=== PATIENT | male | born 1935 | race Caucasian/White ===

== ENCOUNTER 2017-11-27 10:41 | Inpatient (IN) | payer MEDICARE ==
[~2017-11-27] VITALS: Ht 177.8 cm; Wt 71.0 kg
[2017-11-27] MEDS ORDERED: iohexol 300mg/ml 100ml inj. ONE (10:53)
[2017-11-27 11:09] LABS: BASOPHILS # (AUTO) 0.1 X10'3 (0-0.2); BASOPHILS % (AUTO) 0.8 % (0-1); EOSINOPHILS # (AUTO) 0.1 X10'3 (0-0.9); EOSINOPHILS % (AUTO) 1.8 % (0-6); HEMATOCRIT 43.8 % (42.0-52.0); HEMOGLOBIN 14.6 g/dl (14.0-17.9); LYMPHOCYTES # (AUTO) 0.8 X10'3 (1.1-4.8); MEAN CORPUSCULAR HEMOGLOBIN 29.9 PG (27.0-31.0); MEAN CORPUSCULAR HGB CONC 33.4 % (33.0-36.5); MEAN CORPUSCULAR VOLUME 89.5 FL (78-98); MEAN PLATELET VOLUME 7.6 FL (7.4-10.4); MONOCYTES # (AUTO) 0.4 X10'3 (0-0.9); MONOCYTES % (AUTO) 6.2 % (2-12); NEUTROPHILS # (AUTO) 5.2 X10'3 (1.8-7.7); NEUTROPHILS % (AUTO) 79.2 % (42-75); PLATELET COUNT 250 X10'3 (140-440); RED BLOOD COUNT 4.89 X10'6 (4.70-6.10); RED CELL DISTRIBUTION WIDTH 13.8 % (11.5-14.5); WHITE BLOOD COUNT 6.5 X10'3 (4.5-11.0)
[2017-11-27] MEDS ORDERED: aspirin 325mg tablet PO ONE (11:15)
[2017-11-27 11:20] LABS: PARTIAL THROMBOPLASTIN TIME 27 SECONDS (22-32)
[2017-11-27 11:32] LABS: ALANINE AMINOTRANSFERASE 15 U/L (12-78); ALBUMIN 3.2 G/DL (3.4-5.0); ALBUMIN/GLOBULIN RATIO 0.8 (1.1-1.5); ALKALINE PHOSPHATASE 85 IU/L (46-116); ANION GAP 7 (8-16); ASPARTATE AMINO TRANSFERASE 14 U/L (10-37); BILIRUBIN,TOTAL 0.5 MG/DL (0.1-1.0); BLOOD UREA NITROGEN 16 MG/DL (7-18); BUN/CREATININE RATIO 11.2 (5.4-32.0); CALCIUM 8.5 MG/DL (8.5-10.1); CHLORIDE 102 MMOL/L (99-107); CREATININE 1.43 MG/DL (0.60-1.10); GLUCOSE 136 MG/DL (70-104); POTASSIUM 3.8 MMOL/L (3.5-5.1); SODIUM 139 MMOL/L (135-145); TOTAL CARBON DIOXIDE 29.8 MMOL/L (24-32); TOTAL PROTEIN 7.2 G/DL (6.4-8.2); eGFR 47 ML/MIN
[2017-11-27 11:33] LABS: TROPONIN I < 0.04 NG/ML (0.0-0.05)
[2017-11-27] MEDS ORDERED: HYDROcodone/acetaminophen 5mg/325mg tablet PO PRN (11:50)
[2017-11-27] MEDS ORDERED: magnesium hydroxide 30ml (MOM) UD suspension PO PRN (11:50)
[2017-11-27] MEDS ORDERED: acetaminophen 325mg tablet PO PRN (11:50)
[2017-11-27] MEDS ORDERED: mag hydrox/Alum hydrox/simeth 30ml oral suspension PO PRN (11:50)
[2017-11-27] MEDS ORDERED: ondansetron/PF 4mg/2ml inj IV PRN (11:50)
[2017-11-27] MEDS ORDERED: morphine 2 MG/ML inj. syringe IV PRN (11:50)
[2017-11-27 13:27] LABS: CLARITY,URINE CLEAR (Clear); COLOR,URINE STRAW (Yellow); GLUCOSE, URINE NEGATIVE (Neg); KETONES,URINE NEGATIVE (Neg); LEUKOCYTE ESTERASE ,URINE NEGATIVE (Neg); NITRITES, URINE NEGATIVE (Neg); OCCULT BLOOD,URINE NEGATIVE (Neg); PROTEIN,URINE NEGATIVE (Neg); UROBILINOGEN,URINE 0.2 E.U/dL (0.2-1.0)
[2017-11-27 13:28] LABS: UA COLLECTION TYPE CLN CATCH MIDSTREAM
[2017-11-27 18:00] VITALS: BP 135/65
[2017-11-27] MEDS ORDERED: tamsulosin 0.4mg capsule PO SCH (21:00)
[2017-11-27 22:00] VITALS: BP 109/62
[2017-11-27] MEDS: acetaminophen 325mg tablet PO PRN (22:20)
[2017-11-28 02:00] VITALS: BP 100/57
[2017-11-28 05:59] VITALS: BP 110/63
[2017-11-28 06:36] LABS: BASOPHILS % (AUTO) 0.6 % (0-1); EOSINOPHILS # (AUTO) 0.2 X10'3 (0-0.9); EOSINOPHILS % (AUTO) 2.6 % (0-6); HEMATOCRIT 40.7 % (42.0-52.0); HEMOGLOBIN 13.3 g/dl (14.0-17.9); LYMPHOCYTES # (AUTO) 1.1 X10'3 (1.1-4.8); LYMPHOCYTES % (AUTO) 15.8 % (21-51); MEAN CORPUSCULAR HEMOGLOBIN 29.7 PG (27.0-31.0); MEAN CORPUSCULAR HGB CONC 32.7 % (33.0-36.5); MEAN CORPUSCULAR VOLUME 90.9 FL (78-98); MEAN PLATELET VOLUME 7.4 FL (7.4-10.4); MONOCYTES # (AUTO) 0.6 X10'3 (0-0.9); NEUTROPHILS # (AUTO) 5.2 X10'3 (1.8-7.7); PLATELET COUNT 243 X10'3 (140-440); RED BLOOD COUNT 4.48 X10'6 (4.70-6.10); RED CELL DISTRIBUTION WIDTH 13.2 % (11.5-14.5); WHITE BLOOD COUNT 7.2 X10'3 (4.5-11.0)
[2017-11-28 06:48] LABS: ALANINE AMINOTRANSFERASE 9 U/L (12-78); ALBUMIN 2.6 G/DL (3.4-5.0); ALBUMIN/GLOBULIN RATIO 0.8 (1.1-1.5); ALKALINE PHOSPHATASE 67 IU/L (46-116); ANION GAP 4 (8-16); ASPARTATE AMINO TRANSFERASE 14 U/L (10-37); BILIRUBIN,TOTAL 0.5 MG/DL (0.1-1.0); BLOOD UREA NITROGEN 15 MG/DL (7-18); BUN/CREATININE RATIO 10.2 (5.4-32.0); CALCIUM 8.7 MG/DL (8.5-10.1); CHLORIDE 106 MMOL/L (99-107); CREATININE 1.47 MG/DL (0.60-1.10); GLUCOSE 98 MG/DL (70-104); POTASSIUM 4.4 MMOL/L (3.5-5.1); SODIUM 142 MMOL/L (135-145); TOTAL CARBON DIOXIDE 31.6 MMOL/L (24-32); eGFR 46 ML/MIN
[2017-11-28] MEDS ORDERED: enoxaparin 40mg/0.4ml syringe SUBCUT SCH (08:00)
[2017-11-28] MEDS ORDERED: aspirin 325mg tablet PO SCH (08:30)
[2017-11-28 08:57] VITALS: BP 110/63
[2017-11-28 10:00] VITALS: BP 117/74
[2017-11-28] MEDS: acetaminophen 325mg tablet PO PRN (11:47)
[2017-11-28] MEDS ORDERED: ASPI81TA52 PO (13:56)
[2017-11-28] MEDS ORDERED: ATOR20TA PO (13:56)
[2017-11-28] MEDS ORDERED: CEPH500C5 PO (13:58)
== END 2017-11-28 15:35 | disposition home or self-care (01) | DRG 69 ==
LOC: ER 10:42 → ED HOLD 11:47 → EDBEDREQ 12:59 → ORTHO 4S 13:30
PROVIDERS: ADMIT Internal Medicine; ATTEND Family Medicine
PROC: BW281ZZ Computerized Tomography (CT Scan) of Head using Low Osmolar Contrast (ICD-10-PCS; principal; 2017-11-27)
DX: G45.9 Transient cerebral ischemic attack, unspecified (principal); M50.30 Other cervical disc degeneration, unspecified cervical region; N40.0 Benign prostatic hyperplasia without lower urinary tract symptoms; L98.499 Non-pressure chronic ulcer of skin of other sites with unspecified severity; S01.00XD Unspecified open wound of scalp, subsequent encounter; Z88.2 Allergy status to sulfonamides; Z90.49 Acquired absence of other specified parts of digestive tract; Z85.828 Personal history of other malignant neoplasm of skin; Z85.51 Personal history of malignant neoplasm of bladder; Z87.11 Personal history of peptic ulcer disease; Z82.3 Family history of stroke
CPT/HCPCS: 36415; 70470; 70551; 71045; 72141; 80053; 81003; 83880; 84484; 85025; 85610; 85730; 87070; 93005; 93306; 99285; G0378; J1650; Q9967

== ENCOUNTER 2017-12-01 13:58 | Inpatient (IN) | payer MEDICARE ==
[~2017-12-01] VITALS: Ht 185.4 cm; Wt 72.0 kg
[~2017-12-01 13:58] MED LIST: ASPI81TA52 PO; ATOR20TA PO; CEPH500C5 PO
[2017-12-01 14:36] LABS: BASOPHILS % (AUTO) 0.4 % (0-1); EOSINOPHILS # (AUTO) 0.2 X10'3 (0-0.9); EOSINOPHILS % (AUTO) 2.3 % (0-6); HEMATOCRIT 43.9 % (42.0-52.0); HEMOGLOBIN 14.6 g/dl (14.0-17.9); LYMPHOCYTES # (AUTO) 0.9 X10'3 (1.1-4.8); LYMPHOCYTES % (AUTO) 9.4 % (21-51); MEAN CORPUSCULAR HEMOGLOBIN 29.7 PG (27.0-31.0); MEAN CORPUSCULAR HGB CONC 33.2 % (33.0-36.5); MEAN CORPUSCULAR VOLUME 89.6 FL (78-98); MEAN PLATELET VOLUME 7.6 FL (7.4-10.4); MONOCYTES # (AUTO) 0.6 X10'3 (0-0.9); MONOCYTES % (AUTO) 5.8 % (2-12); NEUTROPHILS # (AUTO) 8.2 X10'3 (1.8-7.7); NEUTROPHILS % (AUTO) 82.1 % (42-75); PLATELET COUNT 270 X10'3 (140-440); RED CELL DISTRIBUTION WIDTH 13.7 % (11.5-14.5); WHITE BLOOD COUNT 9.9 X10'3 (4.5-11.0)
[2017-12-01 14:50] LABS: PARTIAL THROMBOPLASTIN TIME 29 SECONDS (22-32); PROTHROMBIN TIME 10.1 SECONDS (9.0-12.0)
[2017-12-01 14:54] LABS: ALANINE AMINOTRANSFERASE 18 U/L (12-78); ALBUMIN 3.2 G/DL (3.4-5.0); ALBUMIN/GLOBULIN RATIO 0.8 (1.1-1.5); ALKALINE PHOSPHATASE 83 IU/L (46-116); ANION GAP 9 (8-16); ASPARTATE AMINO TRANSFERASE 13 U/L (10-37); BILIRUBIN,TOTAL 0.4 MG/DL (0.1-1.0); BLOOD UREA NITROGEN 27 MG/DL (7-18); BUN/CREATININE RATIO 17.9 (5.4-32.0); CALCIUM 8.9 MG/DL (8.5-10.1); CHLORIDE 103 MMOL/L (99-107); CREATININE 1.51 MG/DL (0.60-1.10); GLUCOSE 111 MG/DL (70-104); POTASSIUM 4.5 MMOL/L (3.5-5.1); SODIUM 141 MMOL/L (135-145); TOTAL PROTEIN 7.3 G/DL (6.4-8.2); eGFR 44 ML/MIN
[2017-12-01 14:57] LABS: TROPONIN I < 0.04 NG/ML (0.0-0.05)
[2017-12-01] MEDS ORDERED: clopidogrel 300mg tablet PO ONE (15:30)
[2017-12-01] MEDS ORDERED: acetaminophen 325mg tablet PO ONE (15:50)
[2017-12-01] MEDS ORDERED: magnesium Cl slow-release 64mg tablet PO PRN (16:20)
[2017-12-01] MEDS ORDERED: potassium Cl 40MEQ/NS 500ml 500 ML IV PRN ×2 (16:20)
[2017-12-01] MEDS ORDERED: magnesium 1gm/100ml D5W IVPB 100 ML IV PRN (16:20)
[2017-12-01] MEDS ORDERED: magnesium hydroxide 30ml (MOM) UD suspension PO PRN (16:20)
[2017-12-01] MEDS ORDERED: mag hydrox/Alum hydrox/simeth 30ml oral suspension PO PRN (16:20)
[2017-12-01] MEDS ORDERED: magnesium 4gm in 100ml NS 100 ML IV PRN (16:20)
[2017-12-01] MEDS ORDERED: morphine 2 MG/ML inj. syringe IV PRN (16:20)
[2017-12-01] MEDS ORDERED: potassium Cl 20 mEq SR tablet PO PRN ×2 (16:20)
[2017-12-01] MEDS: normal saline 1000ml 1,000 ML IV SCH (17:01)
[2017-12-01 18:05] VITALS: BP 125/74
[2017-12-01] MEDS: heparin, porcine 5000 units/ml vial SQ SCH (19:25)
[2017-12-01] MEDS: HYDROcodone/acetaminophen 5mg/325mg tablet PO PRN (20:45)
[2017-12-01] MEDS ORDERED: temazepam 15mg capsule PO PRN (21:00)
[2017-12-01 22:00] VITALS: BP 115/75
[2017-12-01] MEDS: tamsulosin 0.4mg capsule PO SCH (22:39)
[2017-12-02] VITALS (7 sets, daily range): BP systolic 113–159; BP diastolic 60–83
[2017-12-02] MEDS: acetaminophen 325mg tablet PO PRN (03:43)
[2017-12-02 05:23] LABS: BASOPHILS % (AUTO) 0.6 % (0-1); EOSINOPHILS # (AUTO) 0.2 X10'3 (0-0.9); EOSINOPHILS % (AUTO) 3.6 % (0-6); HEMATOCRIT 38.1 % (42.0-52.0); HEMOGLOBIN 12.6 g/dl (14.0-17.9); LYMPHOCYTES % (AUTO) 15.5 % (21-51); MEAN CORPUSCULAR HEMOGLOBIN 29.8 PG (27.0-31.0); MEAN CORPUSCULAR VOLUME 90.2 FL (78-98); MEAN PLATELET VOLUME 7.6 FL (7.4-10.4); MONOCYTES # (AUTO) 0.5 X10'3 (0-0.9); NEUTROPHILS # (AUTO) 4.6 X10'3 (1.8-7.7); NEUTROPHILS % (AUTO) 72.3 % (42-75); PLATELET COUNT 242 X10'3 (140-440); RED BLOOD COUNT 4.22 X10'6 (4.70-6.10); RED CELL DISTRIBUTION WIDTH 13.4 % (11.5-14.5); WHITE BLOOD COUNT 6.4 X10'3 (4.5-11.0)
[2017-12-02] MEDS: normal saline 1000ml 1,000 ML IV SCH ×2 (05:33→20:14)
[2017-12-02 05:44] LABS: ALBUMIN 2.4 G/DL (3.4-5.0); ANION GAP 7 (8-16); BLOOD UREA NITROGEN 23 MG/DL (7-18); BUN/CREATININE RATIO 16.7 (5.4-32.0); CALCIUM 8.2 MG/DL (8.5-10.1); CHLORIDE 104 MMOL/L (99-107); CHOL/HDL RATIO 2.7 (0.00-4.99); CHOLESTEROL 112 MG/DL (0-200); CREATININE 1.38 MG/DL (0.60-1.10); GLUCOSE 86 MG/DL (70-104); HDL CHOLESTEROL 41 MG/DL (35-60); LDL CHOLESTEROL 64 MG/DL (50-100); MAGNESIUM 1.7 MG/DL (1.5-2.4); POTASSIUM 4.1 MMOL/L (3.5-5.1); SODIUM 140 MMOL/L (135-145); TOTAL CARBON DIOXIDE 28.9 MMOL/L (24-32); TRIGLYCERIDES 64 MG/DL (20-135); eGFR 49 ML/MIN
[2017-12-02] MEDS: atorvastatin 20mg tablet PO SCH (07:41)
[2017-12-02] MEDS: heparin, porcine 5000 units/ml vial SQ SCH ×2 (07:41→20:15)
[2017-12-02] MEDS: clopidogrel 75mg tablet PO SCH (07:41)
[2017-12-02] MEDS: pantoprazole 40 MG vial IV SCH (07:41)
[2017-12-02] MEDS: K and/or MAG REPLACEMENT MC SCH (07:42)
[2017-12-02] MEDS: morphine 2 MG/ML inj. syringe IV PRN ×2 (12:06→20:44)
[2017-12-02] MEDS: HYDROcodone/acetaminophen 5mg/325mg tablet PO PRN ×2 (16:24→22:14)
[2017-12-02] MEDS: tamsulosin 0.4mg capsule PO SCH (20:15)
[2017-12-03] VITALS (8 sets, daily range): BP systolic 127–141; BP diastolic 60–77
[2017-12-03] MEDS: HYDROcodone/acetaminophen 5mg/325mg tablet PO PRN ×3 (06:10→19:25)
[2017-12-03 06:44] LABS: BASOPHILS % (AUTO) 0.4 % (0-1); EOSINOPHILS # (AUTO) 0.1 X10'3 (0-0.9); EOSINOPHILS % (AUTO) 2.1 % (0-6); HEMATOCRIT 39.2 % (42.0-52.0); HEMOGLOBIN 12.9 g/dl (14.0-17.9); LYMPHOCYTES # (AUTO) 0.9 X10'3 (1.1-4.8); LYMPHOCYTES % (AUTO) 13.3 % (21-51); MEAN CORPUSCULAR HEMOGLOBIN 29.4 PG (27.0-31.0); MEAN CORPUSCULAR HGB CONC 32.9 % (33.0-36.5); MEAN CORPUSCULAR VOLUME 89.4 FL (78-98); MEAN PLATELET VOLUME 7.4 FL (7.4-10.4); MONOCYTES # (AUTO) 0.5 X10'3 (0-0.9); NEUTROPHILS # (AUTO) 4.9 X10'3 (1.8-7.7); NEUTROPHILS % (AUTO) 76.2 % (42-75); PLATELET COUNT 256 X10'3 (140-440); RED BLOOD COUNT 4.38 X10'6 (4.70-6.10); RED CELL DISTRIBUTION WIDTH 13.6 % (11.5-14.5); WHITE BLOOD COUNT 6.4 X10'3 (4.5-11.0)
[2017-12-03 06:54] LABS: ALBUMIN 2.3 G/DL (3.4-5.0); ANION GAP 7 (8-16); BLOOD UREA NITROGEN 16 MG/DL (7-18); BUN/CREATININE RATIO 13.9 (5.4-32.0); CALCIUM 8.5 MG/DL (8.5-10.1); CHLORIDE 103 MMOL/L (99-107); CREATININE 1.15 MG/DL (0.60-1.10); GLUCOSE 90 MG/DL (70-104); MAGNESIUM 1.7 MG/DL (1.5-2.4); SODIUM 138 MMOL/L (135-145); TOTAL CARBON DIOXIDE 27.6 MMOL/L (24-32); eGFR 61 ML/MIN
[2017-12-03] MEDS: pantoprazole 40 MG vial IV SCH (07:38)
[2017-12-03] MEDS: clopidogrel 75mg tablet PO SCH (07:38)
[2017-12-03] MEDS: atorvastatin 20mg tablet PO SCH (07:38)
[2017-12-03] MEDS: heparin, porcine 5000 units/ml vial SQ SCH ×2 (07:39→20:06)
[2017-12-03] MEDS: K and/or MAG REPLACEMENT MC SCH (07:39)
[2017-12-03] MEDS: ondansetron/PF 4mg/2ml inj IV PRN ×3 (08:04→19:25)
[2017-12-03] MEDS: normal saline 1000ml 1,000 ML IV SCH ×2 (09:12→19:59)
[2017-12-03] MEDS ORDERED: iohexol 350MG/ML 100ml bottle IV ONE (15:11)
[2017-12-03] MEDS: tamsulosin 0.4mg capsule PO SCH (20:06)
[2017-12-04] VITALS: BP 124/62
[2017-12-04] MEDS: HYDROcodone/acetaminophen 5mg/325mg tablet PO PRN ×2 (01:32→12:38)
[2017-12-04 04:00] VITALS: BP 122/60
[2017-12-04] MEDS: ondansetron/PF 4mg/2ml inj IV PRN ×2 (05:34→12:37)
[2017-12-04 06:00] VITALS: BP 118/61
[2017-12-04 07:31] LABS: BASOPHILS % (AUTO) 0.4 % (0-1); EOSINOPHILS # (AUTO) 0.1 X10'3 (0-0.9); EOSINOPHILS % (AUTO) 1.4 % (0-6); HEMATOCRIT 39.3 % (42.0-52.0); HEMOGLOBIN 13.2 g/dl (14.0-17.9); LYMPHOCYTES # (AUTO) 0.8 X10'3 (1.1-4.8); LYMPHOCYTES % (AUTO) 12.1 % (21-51); MEAN CORPUSCULAR HGB CONC 33.5 % (33.0-36.5); MEAN CORPUSCULAR VOLUME 89.7 FL (78-98); MEAN PLATELET VOLUME 7.2 FL (7.4-10.4); MONOCYTES # (AUTO) 0.6 X10'3 (0-0.9); MONOCYTES % (AUTO) 9.1 % (2-12); NEUTROPHILS # (AUTO) 5.2 X10'3 (1.8-7.7); PLATELET COUNT 260 X10'3 (140-440); RED BLOOD COUNT 4.39 X10'6 (4.70-6.10); RED CELL DISTRIBUTION WIDTH 13.3 % (11.5-14.5); WHITE BLOOD COUNT 6.7 X10'3 (4.5-11.0)
[2017-12-04 07:51] LABS: ALBUMIN 2.2 G/DL (3.4-5.0); ANION GAP 6 (8-16); BLOOD UREA NITROGEN 15 MG/DL (7-18); BUN/CREATININE RATIO 11.4 (5.4-32.0); CALCIUM 8.3 MG/DL (8.5-10.1); CHLORIDE 103 MMOL/L (99-107); CREATININE 1.32 MG/DL (0.60-1.10); GLUCOSE 100 MG/DL (70-104); MAGNESIUM 1.7 MG/DL (1.5-2.4); SODIUM 137 MMOL/L (135-145); TOTAL CARBON DIOXIDE 28.1 MMOL/L (24-32); eGFR 52 ML/MIN
[2017-12-04] MEDS: K and/or MAG REPLACEMENT MC SCH (08:00)
[2017-12-04] MEDS: pantoprazole 40mg Tablet.DR PO SCH (08:12)
[2017-12-04] MEDS: clopidogrel 75mg tablet PO SCH (08:13)
[2017-12-04] MEDS: atorvastatin 20mg tablet PO SCH (08:13)
[2017-12-04] MEDS: heparin, porcine 5000 units/ml vial SQ SCH ×2 (08:14→20:19)
[2017-12-04] MEDS: normal saline 1000ml 1,000 ML IV SCH ×2 (09:22→21:31)
[2017-12-04 10:00] VITALS: BP 132/72
[2017-12-04 18:00] VITALS: BP 136/67
[2017-12-04] MEDS: acetaminophen 325mg tablet PO PRN (18:47)
[2017-12-04] MEDS: tamsulosin 0.4mg capsule PO SCH (20:19)
[2017-12-04 22:00] VITALS: BP 136/73
[2017-12-05 05:59] LABS: BASOPHILS % (AUTO) 0.3 % (0-1); EOSINOPHILS # (AUTO) 0.1 X10'3 (0-0.9); EOSINOPHILS % (AUTO) 1.1 % (0-6); HEMATOCRIT 38.8 % (42.0-52.0); HEMOGLOBIN 12.7 g/dl (14.0-17.9); LYMPHOCYTES # (AUTO) 0.9 X10'3 (1.1-4.8); LYMPHOCYTES % (AUTO) 15.4 % (21-51); MEAN CORPUSCULAR HEMOGLOBIN 29.5 PG (27.0-31.0); MEAN CORPUSCULAR HGB CONC 32.7 % (33.0-36.5); MEAN PLATELET VOLUME 7.5 FL (7.4-10.4); MONOCYTES # (AUTO) 0.5 X10'3 (0-0.9); MONOCYTES % (AUTO) 8.3 % (2-12); NEUTROPHILS # (AUTO) 4.5 X10'3 (1.8-7.7); NEUTROPHILS % (AUTO) 74.9 % (42-75); PLATELET COUNT 260 X10'3 (140-440); RED BLOOD COUNT 4.31 X10'6 (4.70-6.10); RED CELL DISTRIBUTION WIDTH 13.1 % (11.5-14.5)
[2017-12-05 06:14] LABS: ALBUMIN 2.2 G/DL (3.4-5.0); ANION GAP 7 (8-16); BLOOD UREA NITROGEN 13 MG/DL (7-18); BUN/CREATININE RATIO 9.8 (5.4-32.0); CALCIUM 8.2 MG/DL (8.5-10.1); CHLORIDE 103 MMOL/L (99-107); CREATININE 1.32 MG/DL (0.60-1.10); GLUCOSE 85 MG/DL (70-104); MAGNESIUM 1.7 MG/DL (1.5-2.4); POTASSIUM 3.9 MMOL/L (3.5-5.1); SODIUM 137 MMOL/L (135-145); TOTAL CARBON DIOXIDE 27.5 MMOL/L (24-32); eGFR 52 ML/MIN
[2017-12-05 06:43] VITALS: BP 135/75
[2017-12-05] MEDS: K and/or MAG REPLACEMENT MC SCH (07:31)
[2017-12-05] MEDS: clopidogrel 75mg tablet PO SCH (08:09)
[2017-12-05] MEDS: atorvastatin 20mg tablet PO SCH (08:10)
[2017-12-05] MEDS: pantoprazole 40mg Tablet.DR PO SCH (08:10)
[2017-12-05] MEDS: heparin, porcine 5000 units/ml vial SQ SCH ×2 (08:11→20:29)
[2017-12-05] MEDS: normal saline 1000ml 1,000 ML IV SCH (09:43)
[2017-12-05 10:32] VITALS: BP 151/66
[2017-12-05] MEDS: HYDROcodone/acetaminophen 5mg/325mg tablet PO PRN ×2 (10:41→16:35)
[2017-12-05 10:58] VITALS: BP 142/76
[2017-12-05 14:00] VITALS: BP 134/74
[2017-12-05 19:15] VITALS: BP 135/76
[2017-12-05] MEDS: tamsulosin 0.4mg capsule PO SCH (20:28)
[2017-12-05 23:00] VITALS: BP 137/74
== END 2017-12-06 03:05 | disposition short-term general hospital (02) | DRG 64 ==
LOC: ER 13:59 → ED HOLD 16:17 → ORTHO 4S 17:45
PROVIDERS: ADMIT Internal Medicine; ATTEND Internal Medicine
PROC: 4A10X4Z Monitoring of Central Nervous Electrical Activity, External Approach (ICD-10-PCS; principal; 2017-12-03)
PROC: B3251ZZ Computerized Tomography (CT Scan) of Bilateral Common Carotid Arteries using Low Osmolar Contrast (ICD-10-PCS; 2017-12-03)
PROC: B32G1ZZ Computerized Tomography (CT Scan) of Bilateral Vertebral Arteries using Low Osmolar Contrast (ICD-10-PCS; 2017-12-03)
PROC: B3201ZZ Computerized Tomography (CT Scan) of Thoracic Aorta using Low Osmolar Contrast (ICD-10-PCS; 2017-12-03)
PROC: B3281ZZ Computerized Tomography (CT Scan) of Bilateral Internal Carotid Arteries using Low Osmolar Contrast (ICD-10-PCS; 2017-12-03)
DX: I63.9 Cerebral infarction, unspecified (principal); E43 Unspecified severe protein-calorie malnutrition; N17.9 Acute kidney failure, unspecified; G43.109 Migraine with aura, not intractable, without status migrainosus; N18.3 Chronic kidney disease, stage 3 (moderate); E78.00 Pure hypercholesterolemia, unspecified; E78.5 Hyperlipidemia, unspecified; G40.909 Epilepsy, unspecified, not intractable, without status epilepticus; F17.200 Nicotine dependence, unspecified, uncomplicated; I12.9 Hypertensive chronic kidney disease with stage 1 through stage 4 chronic kidney disease, or unspecified chronic kidney disease; N40.0 Benign prostatic hyperplasia without lower urinary tract symptoms; Z88.2 Allergy status to sulfonamides; Z79.899 Other long term (current) drug therapy; Z79.82 Long term (current) use of aspirin; Z85.51 Personal history of malignant neoplasm of bladder; Z85.828 Personal history of other malignant neoplasm of skin; Z87.11 Personal history of peptic ulcer disease; Z68.20 Body mass index [BMI] 20.0-20.9, adult; Z71.6 Tobacco abuse counseling
CPT/HCPCS: 36415; 70450; 70496; 70498; 70544; 70551; 71045; 80048; 80053; 80061; 82948; 83735; 84484; 85025; 85610; 85730; 87040; 87070; 93005; 93880; 95816; 97116; 97161; 97530; 99285; C9113; G0378; J1644; J2270; J2405; J7030; Q9967